=== PATIENT | female | born 1985 | race African-American/Black ===

== ENCOUNTER 2018-12-27 02:03 | Emergency (ER) | payer OTHER ==
--- NOTE | 2018-12-27 02:08 | NUR ---
PT GIDEON UPON ARRIVAL, PT REFUSED TO ANSWER TRIAGE QUESTIONS AND TO BE SEEN BY ER MD. PT AAOX4. NO ACUTE DISTRESS NOTED AT THIS TIME. PT LEFT IN CUSTODY WITH [employer]. ER MD AWARE.
== END 2018-12-27 02:13 ==
LOC: ER 02:08
DX: Z53.21 Procedure and treatment not carried out due to patient leaving prior to being seen by health care provider (principal)